=== PATIENT | female | born 1955 | race Caucasian/White ===

== ENCOUNTER 2018-04-09 11:55 | Emergency (ER) | payer OTHER ==
[~2018-04-09] VITALS: Ht 162.6 cm; Wt 60.6 kg
[2018-04-09] MEDS ORDERED: SODIUM CHLORIDE FLUSH 10ML SYR IVF ONE (12:30)
[2018-04-09] MEDS ORDERED: LORazepam 2 MG/ML, 1ML IVPush ONE (12:30)
[2018-04-09] MEDS ORDERED: METOPROLOL 1 MG/ML, 5ML IVPush PRN (12:30)
[2018-04-09] MEDS ORDERED: LORazepam 2 MG/ML, 1ML ONE (12:33)
[2018-04-09] MEDS ORDERED: METOPROLOL 1 MG/ML, 5ML ONE (12:33)
[2018-04-09 12:41] LABS: BASOPHILS # (AUTO) 0.12 x10^3/uL (0-0.1); BASOPHILS % (AUTO) 1 % (0-1); EOSINOPHILS # (AUTO) 0.04 x10^3/uL (0-0.4); EOSINOPHILS % (AUTO) 0 % (1-7); LYMPHOCYTES # (AUTO) 3.02 x10^3/uL (1-3.4); LYMPHOCYTES % (AUTO) 23 % (22-44); MD NO; MEAN CORPUSCULAR HEMOGLOBIN 32.2 pg (27.0-34.8); MEAN CORPUSCULAR HGB CONC 33.4 g/dL (32.4-35.8); MEAN CORPUSCULAR VOLUME 96.6 fL (80-100); MEAN PLATELET VOLUME 7.8 fL (7.4-10.4); MONOCYTES # (AUTO) 0.64 x10^3/uL (0.2-0.8); MONOCYTES % (AUTO) 5 % (2-9); NEUTROPHILS # (AUTO) 9.26 x10^3/uL (1.8-6.8); NEUTROPHILS % (AUTO) 71 % (42-75); PLATELET COUNT 331 x10^3/uL (130-400); RED CELL DISTRIBUTION WIDTH 12.7 % (9.6-15.2)
[2018-04-09 12:52] VITALS: BP 139/83
[2018-04-09] MEDS ORDERED: THYR16.2 PO (12:52)
[2018-04-09 12:55] LABS: ALANINE AMINOTRANSFERASE 48 U/L (12-78); ALBUMIN 4.7 g/dL (3.4-5.0); ANION GAP 15 mmol/L (5-15); CALCIUM 9.5 mg/dL (8.5-10.1); CHLORIDE 107 mmol/L (98-107)
[2018-04-09 12:59] LABS: ALKALINE PHOSPHATASE 63 U/L (45-117); BILIRUBIN,TOTAL 1.1 mg/dL (0.2-1.0); FREE T4 (FREE THYROXINE) 1.18 ng/dL (0.76-1.46); TOTAL PROTEIN 8.2 g/dL (6.4-8.2); TROPONIN I < 0.015 ng/mL (0.000-0.045)
== END 2018-04-09 15:03 | disposition home or self-care (01) ==
LOC: ED 15:00
DX: E07.9 Disorder of thyroid, unspecified (principal); R00.2 Palpitations
CPT/HCPCS: 36415; 71045; 80053; 84439; 84443; 84484; 85025; 93005; 96374; 96375; 99285; J2060

== ENCOUNTER 2020-04-15 09:17 | Emergency (ER) | payer OTHER ==
[~2020-04-15] VITALS: Ht 162.6 cm; Wt 58.9 kg
[~2020-04-15 09:17] MED LIST: THYR16.2 PO
[2020-04-15 09:21] VITALS: BP 157/88
[2020-04-19] MEDS ORDERED: LEVO25TA2 PO (17:14)
[2020-04-19] MEDS ORDERED: METO50TA82 PO (17:14)
[2020-04-19] MEDS ORDERED: AZIT500T2 PO (17:14)
== END 2020-04-15 11:01 | disposition home or self-care (01) ==
LOC: ED 10:55
DX: J15.9 Unspecified bacterial pneumonia (principal); R00.0 Tachycardia, unspecified; Z86.39 Personal history of other endocrine, nutritional and metabolic disease
CPT/HCPCS: 71045; 99283

== ENCOUNTER 2020-04-17 08:08 | Emergency (ER) | payer OTHER ==
[~2020-04-17] VITALS: Ht 162.6 cm; Wt 58.3 kg
--- NOTE | 2020-04-17 09:10 | NUR ---
TASK RN NOTE: IV START AND 2ND SET OF BLOOD CULTURES DRAWN OFF SITE. LAB REMAINS AT BEDSIDE FOR REMAINDER OF LAB DRAW. NAD NOTED IN PT AT THIS TIME, WHO IS SITTING UP WATCHING TELEVISION. RESPIRATIONS EVEN AND UNLABORED ON RA.
[2020-04-17 09:41] LABS: ALANINE AMINOTRANSFERASE 24 U/L (12-78); ALBUMIN 3.3 g/dL (3.4-5.0); ANION GAP 8 mmol/L (5-15); CALCIUM 8.8 mg/dL (8.5-10.1); CHLORIDE 108 mmol/L (98-107); CREATININE 0.66 mg/dL (0.55-1.02)
[2020-04-17 09:50] LABS: ALKALINE PHOSPHATASE 62 U/L (45-117); BILIRUBIN,TOTAL 0.4 mg/dL (0.2-1.0); TOTAL PROTEIN 7.4 g/dL (6.4-8.2)
--- NOTE | 2020-04-17 09:51 | NUR ---
Pt resting, states no needs at this time. Covid swab complete. VS updated.
[2020-04-17 10:03] LABS: D-DIMER (DIC) 0.37 ug/mlFEU (0.00-0.52)
[2020-04-17 10:08] LABS: BASOPHILS % (AUTO) 0 % (0-1); EOSINOPHILS % (AUTO) 0 % (1-7); LYMPHOCYTES % (AUTO) 9 % (22-44); MEAN CORPUSCULAR HEMOGLOBIN 32.1 pg (27.0-34.8); MEAN CORPUSCULAR HGB CONC 34.5 g/dL (32.4-35.8); MEAN PLATELET VOLUME 7.5 fL (7.4-10.4); MONOCYTES % (AUTO) 4 % (2-9); NEUTROPHILS % (AUTO) 87 % (42-75); PLATELET COUNT 289 x10^3/uL (130-400); RED BLOOD COUNT 4.26 x10^6/uL (3.82-5.3); RED CELL DISTRIBUTION WIDTH 12.4 % (9.6-15.2)
--- NOTE | 2020-04-17 11:08 | NUR ---
Pt has RA SpO2 94%. VS updated. ERP aware.
--- NOTE | 2020-04-17 12:02 | NUR ---
ERP at bedside. VS updated.
[2020-04-17 12:03] VITALS: BP 140/92
[2020-04-17 12:09] LABS: MD SCAN
[2020-04-19] MEDS ORDERED: LEVO25TA2 PO (17:14)
[2020-04-19] MEDS ORDERED: AZIT500T2 PO (17:14)
[2020-04-19] MEDS ORDERED: METO50TA82 PO (17:14)
== END 2020-04-17 12:31 | disposition home or self-care (01) ==
LOC: ED 09:21
DX: J18.1 Lobar pneumonia, unspecified organism (principal); R05 Cough; R07.9 Chest pain, unspecified; R19.7 Diarrhea, unspecified; R00.0 Tachycardia, unspecified; I10 Essential (primary) hypertension; E03.9 Hypothyroidism, unspecified
CPT/HCPCS: 36415; 71045; 80053; 82728; 83605; 83615; 84145; 85025; 85049; 85379; 85384; 85610; 85730; 86140; 87040; 87635; 93005; 99285